=== PATIENT | female | born 1940 | race African-American/Black ===

== ENCOUNTER 2023-06-19 12:58 | Emergency (ER) | payer MEDICARE ==
[2023-06-19 15:45] LABS: Bilirubin Neg (Negative); Blood, Urine 10 (Negative); Clarity Clear (Clear); Glucose, Urine (Dipstick) Normal (Negative); Ketone, Urine Negative (Negative); Leukocyte Negative (Negative); Nitrite Negative (Negative); Protein, Urine (Dipstick) Negative (Neg-Trace); Specific Gravity, Urine 1.015 (1.005-1.030); Urobilinogen Normal mg/dL (Less than 2)
[2023-06-19 15:53] LABS: ALT (SGPT) 9 U/L (8-55); AST (SGOT) 25 U/L (5-34); Albumin 4.5 g/dL (3.4-4.8); Alkaline Phosphatase 85 U/L (40-110); Anion Gap 17 mmol/L (10-20); BUN (Urea Nitrogen) 16 mg/dL (9.8-20.1); Bilirubin, Total 0.4 mg/dL (0.2-1.2); Calc. Creatinine Clearance 0 mL/min (70-130); Calcium 10.3 mg/dL (7.8-10.44); Carbon Dioxide 21 mmol/L (23-31); Chloride 105 mmol/L (98-107); Estimated GFR 53; Globulin 3.1 g/dL (2.4-3.5); Glucose 80 mg/dL (83-110); Lipase 57 U/L (8-78); Potassium 4.5 mmol/L (3.5-5.1); Protein, Total 7.6 g/dL (5.8-8.1); Sodium 138 mmol/L (136-145)
[2023-06-19 16:18] LABS: #Eosinphils 0.1 10x3/uL (0.0-0.5); #Monocytes 0.6 10x3/uL (0.0-1.1); #Neutrophils 3.1 10x3/uL (1.5-8.4); %Basophils 0.7 % (0.0-2.0); %Lymphocytes 34.1 % (18.0-47.0); %Monocytes 9.7 % (0.0-10.0); %Neutrophils 53.2 % (40.0-75.0); Hematocrit 40.3 % (34.9-44.5); Hemoglobin 13.1 g/dL (12.0-15.5); Mean Corpuscular HGB CONC 32.5 g/dL (32.0-36.0); Mean Corpuscular Hemoglobin 30.6 pg (27.0-33.0); Mean Corpuscular Volume 94.2 fl (81.6-98.3); Mean Platelet Volume 9.5 fl (7.4-10.4); Platelet Count 250 10x3/uL (150-450); Red Blood Cell (RBC) Count 4.28 10x6/uL (3.90-5.03); White Blood Cell (WBC) Count 5.9 10x3/uL (3.5-10.5)
[2023-06-19 17:11] LABS: Bacteria/HPF Rare-Few HPF (None Seen); CAUTI Indications for Culture Pelvic or flank pain; RBC/HPF 0-3 HPF (0-3); Squamous Epithelial 0-3 HPF (0-3); Transitional Epithelial 0-3 HPF (None Seen)
[2023-06-19 17:12] LABS: Urine Culture Reflex No No
== END 2023-06-19 16:54 | disposition home or self-care (01) ==
LOC: CSHERS 12:58
DX: K62.89 Other specified diseases of anus and rectum (principal)
CPT/HCPCS: 80053; 81001; 83690; 85025; 99284

== ENCOUNTER 2023-06-29 22:38 | Observation (INO) | payer MEDICARE ==
[2023-06-29] MEDS ORDERED: Aspirin Chewable 81 MG TAB ONE (23:10)
[2023-06-29 23:20] LABS: #Eosinphils 0.1 10x3/uL (0.0-0.5); #Monocytes 0.7 10x3/uL (0.0-1.1); #Neutrophils 2.7 10x3/uL (1.5-8.4); %Basophils 0.3 % (0.0-2.0); %Lymphocytes 41.8 % (18.0-47.0); %Neutrophils 43.7 % (40.0-75.0); Hematocrit 37.2 % (34.9-44.5); Hemoglobin 12.3 g/dL (12.0-15.5); Mean Corpuscular HGB CONC 33.1 g/dL (32.0-36.0); Mean Corpuscular Hemoglobin 30.6 pg (27.0-33.0); Mean Corpuscular Volume 92.5 fl (81.6-98.3); Mean Platelet Volume 9.3 fl (7.4-10.4); Platelet Count 246 10x3/uL (150-450); RBC Distribution Width 13.5 % (11.5-14.5); Red Blood Cell (RBC) Count 4.02 10x6/uL (3.90-5.03); White Blood Cell (WBC) Count 6.1 10x3/uL (3.5-10.5)
[2023-06-29 23:33] LABS: ALT (SGPT) 13 U/L (8-55); AST (SGOT) 34 U/L (5-34); Albumin 4.2 g/dL (3.4-4.8); Alkaline Phosphatase 56 U/L (40-110); Anion Gap 18 mmol/L (10-20); BUN (Urea Nitrogen) 11 mg/dL (9.8-20.1); Bilirubin, Total 0.3 mg/dL (0.2-1.2); Calc. Creatinine Clearance 0 mL/min (70-130); Calcium 9.8 mg/dL (7.8-10.44); Carbon Dioxide 20 mmol/L (23-31); Chloride 103 mmol/L (98-107); Estimated GFR 43; Glucose 88 mg/dL (83-110); Potassium 4.2 mmol/L (3.5-5.1); Protein, Total 7.2 g/dL (5.8-8.1); Sodium 137 mmol/L (136-145)
[2023-06-29 23:37] LABS: Troponin I Less than 0.010 ng/mL (< 0.028)
[2023-06-30] MEDS ORDERED: Ondansetron PF 4 MG/2 ML Vial IVP PRN (01:05)
[2023-06-30] MEDS ORDERED: Calcium Carbonate 500 MG ChewTAB PO PRN (01:05)
[2023-06-30] MEDS ORDERED: Acetaminophen 325 MG TAB PO PRN (01:05)
[2023-06-30] MEDS ORDERED: Guaifenesin DM 100-10/5 ML UDCUP PO PRN (01:05)
[2023-06-30] MEDS ORDERED: Zolpidem Tartrate 5 MG TAB PO PRN (01:05)
[2023-06-30 02:14] VITALS: BMI 26.6
[2023-06-30 05:07] LABS: Troponin I Less than 0.010 ng/mL (< 0.028)
[2023-06-30 09:13] VITALS: BP 129/64; TEMP 97.8
[2023-06-30 09:33] LABS: Troponin I Less than 0.010 ng/mL (< 0.028)
== END 2023-06-30 12:18 | disposition home or self-care (01) ==
LOC: CSHERS 22:38 → CSHTELE 06-30 00:58
PROVIDERS: ADMIT Student in an Organized Health Care Education/Training Program; ATTEND Student in an Organized Health Care Education/Training Program
DX: R07.9 Chest pain, unspecified (principal); N18.31 Chronic kidney disease, stage 3a; R03.0 Elevated blood-pressure reading, without diagnosis of hypertension; Z88.5 Allergy status to narcotic agent; Z79.899 Other long term (current) drug therapy
CPT/HCPCS: 71045; 80053; 83690; 84484 ×3; 85025; 85379; 93005; G0378; 36415